=== PATIENT | female | born 1955 | race Caucasian/White ===

== ENCOUNTER → 2016-09-24 | Outpatient (CLI) | payer BC ==
[~2016-09-24] MED LIST: AZO PO; COLACE100 MG PO; DITROPAN XL5 MG PO; FLOMAX0.4 MG PO; LEVOTHROID (SY25 MCG PO; NORCO 5-325 TA1 EACH PO; OSCAL500 MG PO; VITAMIN B-121000 MCG PO; ZANTAC300 MG PO
== END | disposition disaster alternative care site (69) ==
LOC: GRAD 15:00
DX: R31.9 Hematuria, unspecified (principal); Z87.442 Personal history of urinary calculi; Z53.8 Procedure and treatment not carried out for other reasons

== ENCOUNTER → 2016-10-13 | Day surgery (SDC) | payer BC ==
[~2016-10-13] VITALS: Ht 160 cm; Wt 78.3 kg
--- NOTE | ~2016-10-13 | OR ---
PATIENT'S NAME: ONELIA [facility] AGE: 61 Y [address] ROOM: [place] [address] [place] [facility] [place]: 10/13/2016 OR/Procedure Report DISCHARGE DATE: FAMILY PHYSICIAN: Yumiko Morris PA-C ATTENDING PHYSICIAN: JESSE MARY SURGEON: Jesse Mary MD WEIGH BOX TENDER: None. DATE OF PROCEDURE: 10/13/2016 PREOPERATIVE DIAGNOSES: 1. Right nephrolithiasis. 2. History of recurrent nephrolithiasis. POSTOPERATIVE DIAGNOSES: 1. Right nephrolithiasis. 2. History of recurrent nephrolithiasis. OPERATIVE PROCEDURES: 1. Cystoscopy with placement of indwelling right ureteral stent. 2. Right extracorporeal shock wave lithotripsy. ANESTHESIA ADMINISTERED: Monitored anesthesia care. INDICATIONS FOR PROCEDURE: The patient is a pleasant 61-year-old female with history of recurrent nephrolithiasis, who was recently found on CT scan of September 29, 2016 to have right nephrolithiasis including a 14-mm right renal pelvis stone as well as several additional non-obstructing stones within her right kidney. She was also noted to have a 3 mm to 4 mm upper pole left renal stone. The patient was explained the risks, benefits, indications, and alternatives to above procedures, and wished to proceed and consented freely. DESCRIPTION OF OPERATION: The patient was brought back to the Operating Room. She was placed on the cystoscopy bed in a supine position. A surgical time- out was called where patient identification, surgical site, and procedure were then verified. We also did verify that the patient received an IV Levaquin antibiotic within an hour of beginning the procedure. The patient then underwent successful administration of monitored anesthesia care. The patient was then moved and placed in a low-lithotomy position, where her genital area was then prepped and draped in the usual sterile fashion. I carefully advanced into her bladder using the rigid cystoscope. Her urethra was within normal limits. Upon entering her bladder, a full reed cystoscopy was performed, and there was no evidence of any bladder tumors, cellules, or diverticula. Her ureteral orifices were noted to be in their orthotopic location. I then carefully cannulated the patient's right ureteral orifice PATIENT'S NAME: ONELIA [facility] AGE: 61 Y [address] ROOM: [place], [place] [address] [place] [facility] [place]: 10/13/2016 OR/Procedure Report DISCHARGE DATE: FAMILY PHYSICIAN: Yumiko Morrsi PA-C ATTENDING PHYSICIAN: JESSE MARY with the Sensor wire, and advanced the wire up to the patient's right renal pelvis. Then, over the wire, I advanced a 4.8-Latvian multi-length ureteral stent deploying it, noting a good curl fluoroscopically in the patient's right renal pelvis, as well as a good curl visually in the patient's bladder. I then emptied the patient's bladder, and the patient was then taken out of the lithotomy position, where she was then transferred over to the recovery bed and transported over to the lithotripsy treatment bed and placed in the supine position. We then brought the right renal pelvis stone into focal point using fluoroscopy, and began performing shock wave lithotripsy starting at 14 kilovolts and working up sequentially to 24 kilovolts in energy. Approximately 2200 shocks were delivered to the stone. It appeared that we had nice fragmentation by fluoroscopic monitoring. It did appear that some of the stone was somewhat more radiolucent in character. We also did visualize a larger upper pole renal calculus, which we then performed shock wave lithotripsy on as well and delivered 1000 shocks to that stone. The patient did tolerate the procedure well. The patient was then awoken from monitored anesthesia care. POSTOPERATIVE CONDITION: She was then transferred over to the recovery bed, and transported to the Recovery Room in good condition. COMPLICATIONS: None. DRAINS: Indwelling 4.8-Latvian multi-length right ureteral stent. SPECIMENS: None. ESTIMATED BLOOD LOSS: Minimal. FOLLOWUP PLAN: We will plan to have the patient back for a followup in Urology Clinic in three weeks from now, with a plain film, KUB, and possible cystoscopy and stent removal if no large residual fragments remain. Also, given her history of recurrent nephrolithiasis, she will likely need further metabolic evaluation in the future with a 24-hour urine analysis. JESSE MARY MD GP/modl PATIENT'S NAME: BETINA ROUSSEAU [facility] AGE: 61 Y [address] ROOM: [place] [id number] [place] [facility] [place]: 10/13/2016 OR/Procedure Report DISCHARGE DATE: FAMILY PHYSICIAN: Yumiko Morris PA-C ATTENDING PHYSICIAN: JESSE MARY /[id number] CC: Yumiko Morris PA-C d: 10/13/16 2258 t: 10/15/16 1834, OPERATIVE SUMMARY
[2016-10-13 12:59] LABS: BASOPHIL % 0.5 %; EOSINOPHIL # 0.1 K/uL (0.0-0.5); EOSINOPHIL % 1.9 %; HEMATOCRIT 42.9 % (33.0-46.0); HEMOGLOBIN 13.9 g/dL (10.0-15.0); LYMPHOCYTE # 1.3 K/uL (0.8-4.0); LYMPHOCYTE % 30.8 %; MCHC 32.4 gm/dL (32.0-36.5); MCV 92.5 fl (83.0-98.0); MONOCYTE # 0.3 K/uL (0.0-1.0); MONOCYTE % 8.3 %; MPV 9.2 fl (9.4-12.4); NEUTROPHIL # (ANC) 2.4 K/uL (1.8-7.8); NEUTROPHIL % 58.5 %; NRBC % 0 /100WBC (0-0.00); PLATELET COUNT 262 K/uL (150-450); RBC 4.64 M/uL (3.50-5.50); RDW-CV 12.9 % (11.9-14.6); WBC 4.1 K/uL (4.0-11.0)
[2016-10-13 13:15] LABS: ALK PHOS 52 IU/L (33-138); ALT 25 IU/L (12-78); ANION GAP 10.8 (10.0-19.0); AST 14 IU/L (10-40); BLOOD UREA NITROGEN 16 mg/dL (6-24); CALCIUM 8.7 mg/dL (8.5-10.5); CHLORIDE 110 mMol/L (96-110); CO2 26 mMol/L (22-32); CREATININE 0.8 mg/dL (0.5-1.1); ESTIMATED GFR (MDRD EQUATION) > 60; POTASSIUM 3.8 mMol/L (3.7-5.1); SODIUM 143 mMol/L (135-145); TOTAL BILIRUBIN 0.6 mg/dL (0.0-1.5)
== END | disposition disaster alternative care site (69) ==
LOC: GPOC 10-08 09:00 → GSDC 09:00
PROVIDERS: Urology
PROC: 0T768DZ Dilation of Right Ureter with Intraluminal Device, Via Natural or Artificial Opening Endoscopic (ICD-10-PCS; principal; 2016-10-13)
PROC: 0TF3XZZ Fragmentation in Right Kidney Pelvis, External Approach (ICD-10-PCS; 2016-10-13)
DX: N20.0 Calculus of kidney (principal); Z88.0 Allergy status to penicillin; Z79.899 Other long term (current) drug therapy; Z98.890 Other specified postprocedural states
CPT/HCPCS: C1769; C2617; J1100; J1956; J2001; J2405; J7120

== ENCOUNTER → 2016-11-06 | Outpatient (CLI) | payer BC | END | disposition disaster alternative care site (69) | LOC: GRAD 13:15 | DX: N20.0 Calculus of kidney (principal); Z96.0 Presence of urogenital implants ==